=== PATIENT | male | born 1980 | race Caucasian/White ===

== ENCOUNTER 2017-02-10 13:19 | Outpatient (CLI) | payer OTHER | END 2017-02-10 13:20 | disposition home or self-care (01) | DX: G47.30 Sleep apnea, unspecified (principal); G47.8 Other sleep disorders; G47.10 Hypersomnia, unspecified; R06.83 Snoring ==

== ENCOUNTER 2017-02-11 19:18 | Outpatient (CLI) | payer OTHER | END 2017-02-11 19:19 | disposition home or self-care (01) | DX: G47.9 Sleep disorder, unspecified (principal); G47.30 Sleep apnea, unspecified; G47.8 Other sleep disorders; G47.10 Hypersomnia, unspecified; R06.83 Snoring ==

== ENCOUNTER 2017-03-03 14:12 | Outpatient (CLI) | payer OTHER | END 2017-03-03 14:13 | disposition home or self-care (01) | DX: G47.30 Sleep apnea, unspecified (principal) ==

== ENCOUNTER 2017-03-08 15:16 | Emergency (ER) | payer OTHER ==
--- NOTE | 2017-03-08 15:47 | ED Physician Documentation ---
History of Present Illness - Stated complaint Stated Complaint: DIZZINESS - Chief complaint Chief Complaint: Neuro - History obtained from History obtained from: Patient - History of Present Illness Timing: How many days ago (several) Pain level max: 5 Pain level now: 5 Improved by: nothing Worsened by: nothing - Additonal information Additional information: Patient is a 36-year-old male who presents to the emergency department with a complaint of "feeling euphoric" for the past several days. Feels like his head is floating. He states that his psychiatrist told him to stop his Cymbalta, ciprofloxacin, hydrocodone, Flexeril. He states that the feeling worsened today. He has been using Ambien for sleep at home. He had been on Vicodin for pain following a right inguinal hernia repair back in August. He also states that he was seen at [facility] recently, diagnosed with epididymitis and started on ciprofloxacin. His urologist reviewed the records and states that he does not need any antibiotics. He has been referred to [facility]. He denies any recent injuries. Denies any fevers. Review of Systems Ten Systems: 10 systems reviewed and negative Constitutional: denies: Fever, Chills Ears: denies: Ear pain Nose: denies: Rhinorrhea / runny nose, Congestion Throat: denies: Sore throat Cardiac: reports: Palpitations. denies: Chest pain / pressure Respiratory: denies: Dyspnea, Cough, Hemoptysis, Wheezing GI: denies: Abdominal Pain, Nausea, Vomiting, Diarrhea Skin: denies: Rash Musculoskeletal: denies: Neck pain, Back pain Neurologic: denies: Focal weakness, Numbness, Headache Psychiatric: reports: Insomnia. denies: Depressed, Suicidal, Homicidal, Hallucinations, Delusions PD PAST MEDICAL HISTORY - Past Medical History Past Medical History: No - Past Surgical History Past Surgical History: No General: Hiatal hernia repair - Present Medications Home Medications: Ambulatory Orders Medication Instructions Recorded Confirmed Lisinopril 10 mg PO DAILY 03/08/17 03/08/17 Pantoprazole [Protonix] 40 mg PO DAILY 03/08/17 03/08/17 - Allergies Allergies/Adverse Reactions: Allergies Allergy/AdvReac Type Severity Reaction Status Date / Time tramadol Allergy Unknown Verified 03/08/17 15:28 - Social History Does the pt smoke?: No Smoking Status: Former smoker Does the pt drink ETOH?: No Does the pt have substance abuse?: No - Immunizations Immunizations are current?: Yes PD ED PE NORMAL - Vitals Vital signs reviewed: Yes - General General: Alert and oriented X 3, No acute distress, Well developed/nourished - HEENT HEENT: PERRL, Moist mucous membranes, Pharynx benign - Neck Neck: Supple, no meningeal sign - Cardiac Cardiac: RRR, Strong equal pulses - Respiratory Respiratory: No respiratory distress, Clear bilaterally - Abdomen Abdomen: Soft, Non tender, Non distended - Derm Derm: Warm and dry, No rash - Extremities Extremities: No edema, No calf tenderness / cord - Neuro Neuro: Alert and oriented X 3, screen printer 2-12 intact, No motor deficit, No sensory deficit, Normal speech - Psych Psych: Normal mood, Normal affect Results - Vitals Vitals: Vital Signs - 24 hr 03/08/17 03/08/17 15:20 17:20 Temperature 37.2 C Heart Rate 121 H 96 Respiratory 21 18 Rate Blood Pressure 138/94 H 119/77 O2 Saturation 99 99 Oxygen O2 Source Room air - EKG (time done) 1557 Rate: Rate (enter#) (107) Rhythm: Sinus tachycardia Wilson: Normal Intervals: Normal NH QRS: Normal Ischemia: Normal ST segments Computer interpretation: Agree with computer - Labs Labs: Laboratory Tests 03/08/17 03/08/17 03/08/17 15:48 15:57 15:57 WBC 8.5 RBC 5.35 Hgb 15.5 Hct 44.9 MCV 84.0 MCH 28.9 MCHC 34.4 RDW 12.3 Plt Count 286 MPV 6.6 L Neut # 5.4 Lymph # 2.4 Mcnairy # 0.5 Eos # 0.1 Baso # 0.0 Absolute Nucleated RBC 0.00 Nucleated RBCs 0.0 Sodium 140 Potassium 3.7 Chloride 106 Carbon Dioxide 27 Anion Gap 7.0 BUN 20 Creatinine 1.1 Estimated GFR (MDRD) 76 L Glucose 114 H Calcium 9.7 Phosphorus 2.8 Magnesium 2.2 Total Bilirubin 0.4 AST 24 ALT 65 H Alkaline Phosphatase 75 Total Protein 7.9 Albumin 4.6 Globulin 3.3 Albumin/Globulin Ratio 1.4 Lipase 28 TSH Urine Color YELLOW Urine Clarity CLEAR Urine pH 6.0 Ur Specific [place] 1.025 Urine Protein NEGATIVE Urine Glucose (UA) NEGATIVE Urine Ketones NEGATIVE Urine Occult Blood NEGATIVE Urine Nitrite NEGATIVE Urine Bilirubin NEGATIVE Urine Urobilinogen 0.2 (NORMAL) Ur Leukocyte Esterase NEGATIVE Ur Microscopic Review NOT INDICATED Urine Culture Comments NOT INDICATED Salicylates < 6.0 Urine Opiates Screen NEGATIVE Ur Oxycodone Screen NEGATIVE Urine Methadone Screen NEGATIVE Ur Propoxyphene Screen NEGATIVE Acetaminophen < 10 L Ur Barbiturates Screen NEGATIVE Ur Tricyclics Screen NEGATIVE Ur Phencyclidine Scrn NEGATIVE Ur Amphetamine Screen NEGATIVE U Methamphetamines Scrn NEGATIVE U Benzodiazepines Scrn NEGATIVE Urine Cocaine Screen NEGATIVE U Cannabinoids Screen NEGATIVE Ethyl Alcohol < 5.0 03/08/17 15:57 WBC RBC Hgb Hct MCV MCH MCHC RDW Plt Count MPV Neut # Lymph # [place]airy # Eos # Baso # Absolute Nucleated RBC Nucleated RBCs Sodium Potassium Chloride Carbon Dioxide Anion Gap BUN Creatinine Estimated GFR (MDRD) Glucose Calcium Phosphorus Magnesium Total Bilirubin AST ALT Alkaline Phosphatase Total Protein Albumin Globulin Albumin/Globulin Ratio Lipase TSH 0.46 Urine Color Urine Clarity Urine pH Ur Specific [place] Urine Protein Urine Glucose (UA) Urine Ketones Urine Occult Blood Urine Nitrite Urine Bilirubin Urine Urobilinogen Ur Leukocyte Esterase Ur Microscopic Review Urine Culture Comments Salicylates Urine Opiates Screen Ur Oxycodone Screen Urine Methadone Screen Ur Propoxyphene Screen Acetaminophen Ur Barbiturates Screen Ur Tricyclics Screen Ur Phencyclidine Scrn Ur Amphetamine Screen U Methamphetamines Scrn U Benzodiazepines Scrn Urine Cocaine Screen U Cannabinoids Screen Ethyl Alcohol PD MEDICAL DECISION MAKING - ED course Complexity details: reviewed results, re-evaluated patient, considered differential, d/w patient ED course: Patient presents to the emergency department with what appears to be medication side effects. Possible this is withdrawal from narcotic or his Cymbalta. Does not appear to have any evidence of serotonin syndrome. No acute electrolyte abnormalities. He is very well-appearing, nontoxic. Afebrile. No chest pain, no dyspnea. No evidence of pulmonary embolus. Will have the patient follow-up with his PCP for further evaluation and care. Patient counseled regarding signs and symptoms for which I believe and urgent re-evaluation would be necessary. Patient with good understanding of and agreement to plan and is comfortable going home at this time This document was made in part using voice recognition software. While efforts are made to proofread this document, sound alike and grammatical errors may occur. Departure - Departure Disposition: 01 Home, Self Care Clinical Impression: Medication side effect, Dizziness Condition: Good Instructions: ED Dizziness UKO Follow-Up: Reno Fernandez DO [Primary Care Provider] - Within 3 Days Comments: Return if you worsen. This should improve over the next few days. Drink plenty of fluids and rest. Your blood pressure was elevated today on check in to the emergency department. This does not mean that you have hypertension, it is a common phenomenon to check into the emergency department and have elevated blood pressure. I recommend that you see your primary care physician within the week to have it rechecked when you're feeling better. Discharge Date/Time: 03/08/17 17:30
[2017-03-08] MEDS: SODIUM CHLORIDE 0.9% 1,000 ML IV ONE (16:03)
[2017-03-08 16:10] LABS: BILIRUBIN,URINE NEGATIVE (NEGATIVE)
[2017-03-08 16:19] LABS: UA CHARGE (STRIP ONLY) YES; UR CULTURE IF IND NOT INDICATED
[2017-03-08 16:24] LABS: ACETAMINOPHEN < 10 ug/mL (10-30); ALBUMIN/GLOBULIN RATIO 1.4 (1.0-2.2); BILIRUBIN,TOTAL 0.4 mg/dL (0.2-1.0); BUN - BLOOD UREA NITROGEN 20 mg/dL (6-20); CALCIUM 9.7 mg/dL (8.5-10.3); CARBON DIOXIDE - CO2 27 mmol/L (21-32); CHLORIDE 106 mmol/L (101-111); CREATININE 1.1 mg/dL (0.6-1.2); GFR - MDRD 76 (>89); GLUCOSE 114 mg/dL (70-100); LIPASE 28 U/L (22-51); MAGNESIUM 2.2 mg/dL (1.7-2.8); PHOSPHORUS 2.8 mg/dL (2.5-4.6); POTASSIUM 3.7 mmol/L (3.5-5.0); SALICYLATE < 6.0 mg/dL; SODIUM 140 mmol/L (135-145); TOTAL PROTEIN 7.9 g/dL (6.7-8.2)
[2017-03-08 16:30] LABS: BASOPHILS % (AUTO) 0.5 %; EOSINOPHILS # (AUTO) 0.1 10^3/uL (0.0-0.7); EOSINOPHILS % (AUTO) 1.2 %; HCT - HEMATOCRIT 44.9 % (42.0-52.0); HGB - HEMOGLOBIN 15.5 g/dL (14.0-18.0); LYMPHOCYTES # (AUTO) 2.4 10^3/uL (1.5-3.5); LYMPHOCYTES % (AUTO) 28.4 %; MEAN CORPUSCULAR HEMOGLOBIN 28.9 pg (27.0-31.0); MEAN CORPUSCULAR HGB CONC 34.4 g/dL (32.0-36.0); MEAN PLATELET VOLUME 6.6 fL (7.4-11.4); MONOCYTES # (AUTO) 0.5 10^3/uL (0.0-1.0); MONOCYTES % (AUTO) 6.2 %; NEUTROPHILS # (AUTO) 5.4 10^3/uL (1.5-6.6); NEUTROPHILS % (AUTO) 63.7 %; RED BLOOD COUNT 5.35 10^6/uL (4.70-6.10); RED CELL DISTRIBUTION WIDTH 12.3 % (12.0-15.0); UNCORRECTED WHITE BLOOD COUNT 8.5 x10^3/uL; WHITE BLOOD COUNT 8.5 x10^3/uL (4.8-10.8)
[2017-03-08 17:21] VITALS: BP 119/77
== END 2017-03-08 17:30 | disposition home or self-care (01) ==
LOC: ED 15:16
DX: R42 Dizziness and giddiness (principal); T50.995A Adverse effect of other drugs, medicaments and biological substances, initial encounter; Y92.009 Unspecified place in unspecified non-institutional (private) residence as the place of occurrence of the external cause; R03.0 Elevated blood-pressure reading, without diagnosis of hypertension; Z87.891 Personal history of nicotine dependence
CPT/HCPCS: 36415; 80053; 80306; 80307; 80320; 80329; 81001; 81003; 83690; 83735; 84100; 84443; 85025; 87086; 93005; 93010; 96360; 99283; 99284

== ENCOUNTER 2017-04-02 20:36 | Outpatient (CLI) | payer OTHER | END 2017-04-02 20:37 | disposition home or self-care (01) | DX: G47.30 Sleep apnea, unspecified (principal); G47.8 Other sleep disorders ==

== ENCOUNTER 2017-04-03 21:17 | Emergency (ER) | payer OTHER ==
[2017-04-03] MEDS ORDERED: KETOROLAC 60 MG/2 ML VIAL IM STA (21:42)
[2017-04-03] MEDS ORDERED: KETOROLAC 60 MG/2 ML VIAL ONE (21:46)
--- NOTE | 2017-04-03 21:46 | ED Physician Documentation ---
PD HPI Fall - Stated complaint Stated Complaint: NECK PX - Chief complaint Chief Complaint: Trauma Hd/Nk - History obtained from History obtained from: Patient - History of Present Illness Mechanism of injury: Slipped Fall distance: Standing position Where injury occurred: Home Timing - onset: How many hours ago (1) Injury(ies) location: Neck Pain level max: 8 Pain level now: 8 Quality of pain: Pain, Throbbing, Aching Associated symptoms: Neck pain. No: LOC, AMS, Amnesia, Seizures, Ear drainage, Nasal drainage, Weakness, Paresthesias, Dyspnea, Nausea / vomiting, Hematemesis , Abdominal distension Symptoms improve with: Rest Worsens with: Movement, Palpation Contributing factors: No: Anticoagulated, Intoxicated Similar symptoms before: Has not had sx before Recently seen: Not recently seen - Additional information Additional information: Patient fell in bathroom tonight Review of Systems Constitutional: denies: Fever, Chills Eyes: denies: Loss of vision, Decreased vision, Photophobia Ears: denies: Ear pain Nose: denies: Rhinorrhea / runny nose, Congestion Throat: denies: Sore throat Cardiac: denies: Chest pain / pressure Respiratory: denies: Cough GI: denies: Abdominal Pain, Nausea, Vomiting, Diarrhea Skin: denies: Rash Musculoskeletal: denies: Back pain Neurologic: denies: Focal weakness, Numbness, Headache PD PAST MEDICAL HISTORY - Past Medical History Past Medical History: Yes Cardiovascular: Hypertension - Past Surgical History Past Surgical History: Yes General: Hiatal hernia repair - Present Medications Home Medications: Ambulatory Orders Medication Instructions Recorded Confirmed Lisinopril 10 mg PO DAILY 03/08/17 04/03/17 Pantoprazole [Protonix] 40 mg PO DAILY 03/08/17 04/03/17 Cyclobenzaprine [Flexeril] 10 mg PO TID PRN #20 tablet 04/03/17 Duloxetine HCl [Cymbalta] 1 tab PO DAILY 04/03/17 04/03/17 Gabapentin 900 mg PO TID 04/03/17 04/03/17 Ibuprofen [Motrin] 800 mg PO Q8H PRN #30 tablet 04/03/17 - Allergies Allergies/Adverse Reactions: Allergies Allergy/AdvReac Type Severity Reaction Status Date / Time tramadol Allergy Unknown Verified 04/03/17 21:24 - Living Situation Living Situation: reports: With family Living Arrangement: reports: At home - Social History Does the pt smoke?: No Smoking Status: Former smoker Does the pt drink ETOH?: No Does the pt have substance abuse?: No - Immunizations Immunizations are current?: Yes PD ED PE NORMAL - Vitals Vital signs reviewed: Yes - General General: Alert and oriented X 3, No acute distress - HEENT HEENT: Atraumatic, PERRL, Ears normal, Moist mucous membranes, Pharynx benign - Neck Neck: Other (TTP low cervical spine, midline) - Cardiac Cardiac: RRR, Strong equal pulses - Respiratory Respiratory: No respiratory distress, Clear bilaterally - Abdomen Abdomen: Soft, Non tender - Back Back: No spinal TTP - Derm Derm: Warm and dry - Extremities Extremities: No deformity, No tenderness to palpate - Neuro Neuro: Alert and oriented X 3, electrochemist 2-12 intact, No motor deficit, No sensory deficit, Normal speech - Psych Psych: Normal mood, Normal affect Results - Vitals Vitals: Vital Signs - 24 hr 04/03/17 04/03/17 21:22 22:50 Temperature 36.9 C 36.5 C Heart Rate 107 H 79 Respiratory 18 18 Rate Blood Pressure 181/109 H 128/76 O2 Saturation 98 95 Oxygen O2 Source Room air - Rads (name of study) CT cervical spine Radiology: Prelim report reviewed, EMP read contemporaneously, See rad report ( no fracture or dislocation) PD MEDICAL DECISION MAKING - ED course Complexity details: reviewed results, re-evaluated patient, considered differential, d/w patient ED course: Patient is a 36-year-old male who presents with neck pain after a fall today. No acute findings on CT scan. Appears to be muscular in nature. No neurological deficits. Feels better after Toradol and Flexeril. Will prescribe Flexeril and Motrin for home and have him follow-up with his doctor. Patient counseled regarding signs and symptoms for which I believe and urgent re -evaluation would be necessary. Patient with good understanding of and agreement to plan and is comfortable going home at this time This document was made in part using voice recognition software. While efforts are made to proofread this document, sound alike and grammatical errors may occur. Departure - Departure Disposition: 01 Home, Self Care Clinical Impression: Neck strain Qualifiers: Encounter type: initial encounter Qualified Code(s): S16.1XXA - Strain of muscle, fascia and tendon at neck level, initial encounter Condition: Good Instructions: ED Sprain Strain Neck Follow-Up: Te Gamble MD [Primary Care Provider] - Within 1 week Prescriptions: Cyclobenzaprine [Flexeril] 10 mg PO TID PRN #20 tablet PRN Reason: Spasms Ibuprofen [Motrin] 800 mg PO Q8H PRN #30 tablet PRN Reason: PAIN &/OR FEVER Comments: Return if you worsen. You will be sore tomorrow. Do not drive or operate heavy machinery while taking the flexeril. Your blood pressure was elevated today on check in to the emergency department. This does not mean that you have hypertension, it is a common phenomenon to check into the emergency department and have elevated blood pressure. I recommend that you see your primary care physician within the week to have it rechecked when you're feeling better.
--- NOTE | 2017-04-03 22:30 | CT Preliminary Report ---
Exam: CT Cervical Spine W/O IMPRESSION: No acute cervical spine fracture or malalignment. [facility] SITE ID: [id number]
--- NOTE | 2017-04-03 22:32 | CT Report ---
EXAM: CT CERVICAL SPINE WITHOUT CONTRAST DATE: 04/03/2017 09:58 PM HISTORY: Fall, neck pain. COMPARISONS: None. TECHNIQUE: Thin-section axial images were acquired of the cervical spine without contrast. Post-proce ssing: Coronal and sagittal reformats. Other: None. In accordance with CT protocol optimization, one or more of the following dose reduction techniques w ere utilized for this exam: automated exposure control, adjustment of mA and/or KV based on patient s ize, or use of iterative reconstructive technique. FINDINGS: Alignment: Normal. No scoliosis or spondylolisthesis. Bones: No fracture or bone lesion. Interspace Levels/Facets: C1-C2: Unremarkable. C2-C3: Unremarkable. C3-C4: Unremarkable. C4-C5: There is mild bilateral facet arthropathy without spinal canal or foraminal stenosis. C5-C6: Unremarkable. C6-C7: Unremarkable. C7-T1: Unremarkable. Musculature: Normal. No fatty atrophy. Other: The paravertebral and prevertebral soft tissues are normal. The lung apices are clear. IMPRESSION: No acute cervical spine fracture or malalignment. [facility] Referring Provider Line: [phone] SITE ID: [id number]
[2017-04-03] MEDS ORDERED: CYCLOBENZAPRINE 10 MG TABLET PO STA (22:43)
[2017-04-03] MEDS ORDERED: CYCLOBENZAPRINE 10 MG TABLET PO ONE (22:47)
[2017-04-03 22:51] VITALS: BP 128/76
== END 2017-04-03 22:54 | disposition home or self-care (01) ==
LOC: ED 21:17
DX: S16.1XXA Strain of muscle, fascia and tendon at neck level, initial encounter (principal); W01.0XXA Fall on same level from slipping, tripping and stumbling without subsequent striking against object, initial encounter; Y92.002 Bathroom of unspecified non-institutional (private) residence as the place of occurrence of the external cause; I10 Essential (primary) hypertension; Z87.891 Personal history of nicotine dependence
CPT/HCPCS: 72125; 96372; 99284; A9270

== ENCOUNTER 2017-04-15 09:03 | Outpatient (CLI) | payer OTHER | END 2017-04-15 09:04 | disposition home or self-care (01) | LOC: SC 09:03 | PROVIDERS: ATTEND Nurse Practitioner Family | DX: R06.83 Snoring (principal); R53.83 Other fatigue | CPT/HCPCS: 99212; 99214 ==

== ENCOUNTER 2017-06-01 14:04 | Emergency (ER) | payer OTHER ==
[2017-06-01] MEDS ORDERED: KETOROLAC 60 MG/2 ML VIAL IM STA (14:24)
--- NOTE | 2017-06-01 14:25 | ED Physician Documentation ---
PD HPI BACK PAIN - Stated complaint Stated Complaint: BACK PX - Chief complaint Chief Complaint: Back Pain - History obtained from History obtained from: Patient - History of Present Illness Timing - onset: Other (Lifting his lawnmower today and felt a sudden pain in his back, the mid back that then spread out and got worse. It does not radiate into the legs. There is no weakness, numbness, tingling, saddle anesthesia, or fever.) Review of Systems Constitutional: denies: Fever, Chills Cardiac: denies: Chest pain / pressure, Palpitations Respiratory: denies: Dyspnea, Cough PD PAST MEDICAL HISTORY - Past Medical History Cardiovascular: Hypertension Psych: Depression, Anxiety, Post traumatic stress disorder - Past Surgical History Past Surgical History: Yes General: Hiatal hernia repair - Present Medications Home Medications: Ambulatory Orders Medication Instructions Recorded Confirmed Lisinopril 10 mg PO DAILY 03/08/17 06/01/17 Pantoprazole [Protonix] 40 mg PO DAILY 03/08/17 06/01/17 Duloxetine HCl [Cymbalta] 1 tab PO DAILY 04/03/17 06/01/17 Celecoxib [CeleBREX] 100 mg PO DAILY 06/01/17 06/01/17 Oxycodone HCl/Acetaminophen 1 - 2 tab PO Q4H PRN #10 tablet 06/01/17 [Percocet 5-325 mg Tablet] - Allergies Allergies/Adverse Reactions: Allergies Allergy/AdvReac Type Severity Reaction Status Date / Time tramadol Allergy Unknown Verified 04/03/17 21:24 - Social History Does the pt smoke?: No Smoking Status: Former smoker Does the pt drink ETOH?: No Does the pt have substance abuse?: No - Immunizations Immunizations are current?: Yes - POLST Patient has POLST: No PD ED PE NORMAL - Vitals Vital signs reviewed: Yes - General General: Alert and oriented X 3, No acute distress - Neck Neck: Supple, no meningeal sign, No bony TTP - Back Back: Other (Focal TTP Low thoracic mid back, The patient has equal and normal Achilles and patellar reflexes bilaterally. Normal sensation in all areas of the legs. Patient denies saddle anesthesia. 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 He was forthcoming about this, has been having ongoing problems with a hernia. Departure - Departure Disposition: 01 Home, Self Care Clinical Impression: Back pain Qualifiers: Back pain location: thoracic back pain Chronicity: acute Back pain laterality: midline Qualified Code(s): M54.6 - Pain in thoracic spine Condition: Good Record reviewed to determine appropriate education?: Yes Instructions: ED Neck Back Pain General Prescriptions: Oxycodone HCl/Acetaminophen [Percocet 5-325 mg Tablet] 1 - 2 tab PO Q4H PRN #10 tablet PRN Reason: Pain Comments: Talk with your doctor tomorrow Your blood pressure was elevated today on check into the emergency department. This does not mean that you have hypertension, it is a common phenomenon to come to the emergency department and have elevated blood pressure. I recommend that she see her primary care physician within the week to have it rechecked when you are feeling better. Do not drink or drive while taking narcotic pain medication. Note that many narcotic pain relievers also contain Tylenol/acetaminophen. Please ensure that your total dose of acetaminophen from all sources does not exceed 3 g (3000 mg) per day. You may get constipated while on this medication. Take a stool softener such as Colace twice a day while you are on it. Also add an [id number] laxative such as senna or MiraLAX on any day that you do not have a bowel movement. If you received a narcotic pain medication or sedative while in the emergency department, do not drive for the next 24 hours.
[2017-06-01] MEDS ORDERED: KETOROLAC 60 MG/2 ML VIAL ONE (14:32)
[2017-06-01 14:56] VITALS: BP 120/79
== END 2017-06-01 14:59 | disposition home or self-care (01) ==
LOC: ED 14:04
DX: M54.6 Pain in thoracic spine (principal); I10 Essential (primary) hypertension; Z87.891 Personal history of nicotine dependence
CPT/HCPCS: 96372; 99282; 99283